=== PATIENT | female | born 1950 | race Caucasian/White ===

== ENCOUNTER 2019-06-25 08:16 | Outpatient (CLI) | payer MEDICARE, MEDICAID, SELFPAY ==
--- NOTE | ~2019-06-25 | DEXA_ITS ---
Bone Density Report Name: Yee Purdy Age: 69 Sex: Female Ethnicity: White Date of : 1950 Indication: postmenopausal; height loss; Referring Provider: GHAZAL MCCORD Study: Bone densitometry was performed. Exam Date: June 25, 2019 Accession number: [id number] Bone Density: Region BMD T-score Z-score Classification AP Spine (L1-L4) 1.235 1.7 3.9 Normal Femoral Neck (Left) 0.764 -0.8 1.1 Normal Total Hip (Left) 1.054 0.9 2.5 Normal Total Hip Bilateral Avg 0.970 0.2 1.8 Normal Femoral Neck (Right) 0.766 -0.8 1.1 Normal Total Hip (Right) 0.884 -0.5 1.1 Normal World Health Organization criteria for BMD impression classify patients as: Normal (T-score at or above -1.0), Osteopenia (T-score between -1.0 and -2.5), or Osteoporosis (T-score at or below -2.5). 10-year Fracture Risk: FRAX not reported because: All T-scores for Spine Total, Hip Total, Femoral Neck at or above -1.0 Clinical Information Provided by Patient: Patient maximum height was 62 Menopause Age: 53 No regular weight bearing exercise Drinks caffeinated beverages Onset of menses at age 14 Number of children 0 Impression: The patient has normal bone mass. Discussion: BONE DENSITY IS ABOVE THE MINIMUM DESIRABLE LEVEL AT ALL SKELETAL SITES TESTED. This patient?s bone mineral density is above the minimum desirable level (T-score -1.0 or better) at all sites measured. The patient should follow a healthful lifestyle (good nutrition with adequate calcium and vitamin D, and appropriate weight-bearing exercise). Follow-Up: Consider repeating this study in 5 years or sooner if there is some new clinical indication. Reported by: [facility] on 06/25/2019 8:51:00 AM. Reviewed, dictated and finalized at location A.
[2019-06-25 09:43] LABS: Hemoglobin A1C 6.4 % (<5.7)
[2019-06-25 09:51] LABS: Alanine Aminotransferase 27 U/L (4-35); Albumin Level 4.2 g/dL (3.5-5.1); Alkaline Phosphatase 90 U/L (38-126); Aspartate Amino Transferase 30 U/L (14-36); Bilirubin,Total 0.4 mg/dL (0.2-1.3); Blood Urea Nitrogen 16 mg/dL (7-17); Calcium 9.2 mg/dL (8.4-10.2); Carbon Dioxide 28 mmol/L (22-30); Chloride 102 mmol/L (98-107); Cholesterol 228 mg/dL (0-200); Estimated Glomerular Filt Rate > 60; Glucose 118 mg/dL (65-105); HDL Direct 61 mg/dL; Sodium 139 mmol/L (137-145); Triglycerides 135 mg/dL (<150)
[2019-06-25 10:02] LABS: LDL Cholesterol Direct 143 mg/dL
[2019-06-25 10:19] LABS: Vitamin D 25 Hydroxy 16.2 ng/mL
== END 2019-06-25 08:17 | disposition home or self-care (01) ==
PROVIDERS: PCP Emergency Medicine; Visit Provider Emergency Medicine
DX: Z78.0 Asymptomatic menopausal state (principal); E78.2 Mixed hyperlipidemia; E11.9 Type 2 diabetes mellitus without complications; E55.9 Vitamin D deficiency, unspecified
CPT/HCPCS: 36415; 77080; 80053; 80061; 82306; 83036

== ENCOUNTER 2020-07-19 12:55 | Outpatient (CLI) | payer MEDICARE, MEDICAID, SELFPAY ==
[2020-07-19 17:36] LABS: Hemoglobin A1C 6.5 % (<5.7)
[2020-07-19 18:21] LABS: Alanine Aminotransferase 65 U/L (4-35); Albumin Level 4.1 g/dL (3.5-5.1); Alkaline Phosphatase 82 U/L (38-126); Anion Gap 8 mmol/L (8-16); Aspartate Amino Transferase 60 U/L (14-36); Bilirubin,Total 0.6 mg/dL (0.2-1.3); Blood Urea Nitrogen 13 mg/dL (7-17); Calcium 9.5 mg/dL (8.4-10.2); Carbon Dioxide 26 mmol/L (22-30); Chloride 106 mmol/L (98-107); Cholesterol 228 mg/dL (0-200); Estimated Glomerular Filt Rate > 60; Glucose 138 mg/dL (65-105); HDL Direct 65 mg/dL; Potassium 4.4 mmol/L (3.4-5.0); Sodium 140 mmol/L (137-145); Triglycerides 98 mg/dL (<150)
[2020-07-19 18:32] LABS: LDL Cholesterol Direct 161 mg/dL
== END 2020-07-19 12:56 | disposition home or self-care (01) ==
LOC: ANHLAB 12:57
PROVIDERS: PCP Emergency Medicine; Visit Provider Emergency Medicine
DX: E78.2 Mixed hyperlipidemia (principal); E11.9 Type 2 diabetes mellitus without complications
CPT/HCPCS: 36415; 80053; 80061; 83036; 84443

== ENCOUNTER 2021-04-12 13:24 | Outpatient (CLI) | payer MEDICARE, SELFPAY ==
[2021-04-12 14:19] LABS: Alanine Aminotransferase 31 U/L (4-35); Albumin Level 4.4 g/dL (3.5-5.1); Alkaline Phosphatase 103 U/L (38-126); Anion Gap 4 mmol/L (8-16); Aspartate Amino Transferase 32 U/L (14-36); Bilirubin,Total 0.7 mg/dL (0.2-1.3); Blood Urea Nitrogen 19 mg/dL (7-17); Calcium 9.5 mg/dL (8.4-10.2); Carbon Dioxide 33 mmol/L (22-30); Chloride 101 mmol/L (98-107); Cholesterol 252 mg/dL (0-200); Estimated Glomerular Filt Rate > 60; Glucose 144 mg/dL (65-110); HDL Direct 69 mg/dL; Potassium 4.3 mmol/L (3.4-5.0); Sodium 138 mmol/L (137-145); Triglycerides 141 mg/dL (<150)
[2021-04-12 14:20] LABS: Hemoglobin A1C 6.8 % (<5.7)
[2021-04-12 14:29] LABS: LDL Cholesterol Direct 134 mg/dL
[2021-04-12 16:49] LABS: Microalbumin Urine Random < 6.0 mg/L (0-16.7)
== END 2021-04-12 13:25 | disposition home or self-care (01) ==
LOC: ANHLAB 13:29
PROVIDERS: PCP Emergency Medicine; Visit Provider Emergency Medicine
DX: E11.9 Type 2 diabetes mellitus without complications (principal); I10 Essential (primary) hypertension
CPT/HCPCS: 36415; 80053; 80061; 82043; 83036

== ENCOUNTER 2021-04-12 14:30 | Outpatient (CLI) | payer MEDICARE, SELFPAY ==
--- NOTE | ~2021-04-12 | MM_ITS ---
EXAMINATION: MM screening [facility] BI w nicole HISTORY: Screening mammogram TECHNIQUE: Craniocaudal and mediolateral oblique 3-D tomosynthesis images were obtained and synthetic 2-D images were generated. CAD analysis was submitted and interpreted. COMPARISON: bilateral screening mammogram BREAST PARENCHYMAL COMPOSITION: The breasts are almost entirely fatty. FINDINGS: There is no evidence of suspicious mass, calcification, or architectural distortion to sugg est malignancy in either breast. There has been no suspicious interval change. IMPRESSION: 1. No mammographic evidence of malignancy. 2. Recommend routine screening mammography in one year. BI-RADS Category 1: Negative Reviewed, dictated and finalized at location A. AULIC PLUMBER HELPER
== END 2021-04-12 14:31 | disposition home or self-care (01) ==
LOC: ANHIMG 14:32
PROVIDERS: PCP Emergency Medicine; Visit Provider Emergency Medicine
DX: Z12.31 Encounter for screening mammogram for malignant neoplasm of breast (principal)
CPT/HCPCS: 77063; 77067

== ENCOUNTER 2022-10-17 14:43 | Outpatient (CLI) | payer MEDICARE, MEDICAID, SELFPAY ==
--- NOTE | ~2022-10-17 | MM_ITS ---
EXAMINATION: MM screening [facility] BI w nicole HISTORY: Screening mammogram TECHNIQUE: Craniocaudal and mediolateral oblique 3-D tomosynthesis images were obtained and synthetic 2-D images were generated. CAD analysis was submitted and interpreted. COMPARISON: 04/12/2021, 08/29/2016 BREAST PARENCHYMAL COMPOSITION: There are scattered areas of fibroglandular density. FINDINGS: No suspicious mass, calcification, or architectural distortion are identified in either tim ast to suggest malignancy. There has been no suspicious interval change. IMPRESSION: 1. No mammographic evidence of malignancy. 2. Recommend routine screening mammography in one year. BI-RADS Category 1: Negative Reviewed, dictated and finalized at location A.
== END 2022-10-17 14:44 | disposition home or self-care (01) ==
PROVIDERS: PCP Emergency Medicine; Visit Provider Emergency Medicine
DX: Z12.31 Encounter for screening mammogram for malignant neoplasm of breast (principal)
CPT/HCPCS: 77063; 77067

== ENCOUNTER 2022-10-17 15:12 | Outpatient (CLI) | payer MEDICARE, MEDICAID, SELFPAY ==
[2022-10-17 16:20] LABS: Cholesterol 234 mg/dL (0-200); HDL Direct 61 mg/dL; Triglycerides 146 mg/dL (<150)
[2022-10-17 16:31] LABS: LDL Cholesterol Direct 130 mg/dL
[2022-10-17 18:55] LABS: Hemoglobin A1C 6.6 % (<5.7)
[2022-10-23 15:47] LABS: Vitamin D 1,25 (OH)2 Total 33 pg/mL (18-72); Vitamin D2 1,25 (OH)2 <8 pg/mL; Vitamin D3 1,25 (OH)2 33 pg/mL
== END 2022-10-17 15:13 | disposition home or self-care (01) ==
LOC: ANHLAB 15:14
PROVIDERS: PCP Emergency Medicine; Visit Provider Internal Medicine Hematology & Oncology
DX: E55.9 Vitamin D deficiency, unspecified (principal); I10 Essential (primary) hypertension; E11.9 Type 2 diabetes mellitus without complications
CPT/HCPCS: 36415; 80061; 82652; 83036

== ENCOUNTER 2023-05-08 14:03 | Outpatient (CLI) | payer MEDICARE, MEDICAID, SELFPAY ==
--- NOTE | ~2023-05-08 | US_ITS ---
EXAMINATION: US venous doppler LE RT DATE: 05/08/2023 15:16 INDICATION: Right lower limb pain. TECHNIQUE: Grayscale ultrasound images without and with compression and Doppler ultrasound images of the right lower extremity veins were obtained. COMPARISON: None. FINDINGS: The visualized portions of right common femoral vein, profunda (deep) femoral vein, femoral vein, pop liteal vein, peroneal veins, posterior tibial veins, and greater saphenous vein outflow are patent. IMPRESSION: 1. No deep venous thrombosis. Reviewed, dictated and finalized at location A. ER PRODUCTION LINE ARC
--- NOTE | ~2023-05-08 | XR_ITS ---
EXAMINATION: XR tibia fibula RT 2V DATE: 05/08/2023 14:25 INDICATION: Right lower leg pain. TECHNIQUE: 2 views of right tibia and fibula were obtained. COMPARISON: None. FINDINGS: Bone alignment is normal. No fracture. There is severe right knee osteoarthritis. There are enthesophytes at the posterior and plantar aspects of calcaneal tuberosity. IMPRESSION: 1. Severe right knee osteoarthritis. Reviewed, dictated and finalized at location A. ZER ASSISTANT
== END 2023-05-08 14:04 | disposition home or self-care (01) ==
PROVIDERS: PCP Emergency Medicine; Visit Provider Emergency Medicine
DX: M17.11 Unilateral primary osteoarthritis, right knee (principal)
CPT/HCPCS: 73590; 93971

== ENCOUNTER 2023-05-15 13:36 | Outpatient (CLI) | payer MEDICARE, MEDICAID, SELFPAY ==
[2023-05-15 15:55] LABS: Vitamin D 25 Hydroxy 23.7 ng/mL
[2023-05-15 16:08] LABS: Alanine Aminotransferase 21 U/L (6-35); Albumin Level 4.3 g/dL (3.5-5.1); Alkaline Phosphatase 98 U/L (38-126); Anion Gap 8 mmol/L (8-16); Aspartate Amino Transferase 27 U/L (14-36); Bilirubin,Total 0.7 mg/dL (0.2-1.3); Blood Urea Nitrogen 19 mg/dL (7-17); Calcium 9.4 mg/dL (8.4-10.2); Carbon Dioxide 27 mmol/L (22-30); Chloride 106 mmol/L (98-107); Cholesterol 174 mg/dL (0-200); Estimated Glomerular Filt Rate > 60; Glucose 131 mg/dL (65-110); HDL Direct 65 mg/dL; Potassium 3.6 mmol/L (3.4-5.0); Sodium 141 mmol/L (137-145); Triglycerides 101 mg/dL (<150)
[2023-05-15 16:19] LABS: LDL Cholesterol Direct 74 mg/dL
[2023-05-15 21:01] LABS: Hemoglobin A1C 7.4 % (<5.7)
== END 2023-05-15 13:37 | disposition home or self-care (01) ==
LOC: ANHLAB 13:38
PROVIDERS: PCP Emergency Medicine; Visit Provider Internal Medicine Hematology & Oncology
DX: E78.5 Hyperlipidemia, unspecified (principal); E11.9 Type 2 diabetes mellitus without complications; E55.9 Vitamin D deficiency, unspecified; E03.9 Hypothyroidism, unspecified
CPT/HCPCS: 36415; 80053; 80061; 82306; 83036; 84443

== ENCOUNTER 2024-05-12 16:13 | Outpatient (CLI) | payer MEDICARE, MEDICAID, SELFPAY ==
[2024-05-12 17:32] LABS: Cholesterol 199 mg/dL (0-200); Estimated Glomerular Filt Rate > 60; HDL Direct 68 mg/dL; Triglycerides 150 mg/dL (<150)
[2024-05-12 17:42] LABS: LDL Cholesterol Direct 92 mg/dL
== END 2024-05-12 16:14 | disposition home or self-care (01) ==
PROVIDERS: PCP Emergency Medicine; Visit Provider Emergency Medicine
DX: E11.9 Type 2 diabetes mellitus without complications (principal); E78.5 Hyperlipidemia, unspecified
CPT/HCPCS: 36415; 80061; 82565

== ENCOUNTER 2024-08-13 13:49 | Outpatient (CLI) | payer MEDICARE, MEDICAID, SELFPAY ==
--- NOTE | ~2024-08-13 | DEXA_ITS ---
Bone Density Report Name: ROSALIE ALMONTE Age: 74 Sex: Female Ethnicity: White Date of : 1950 Indication: postmenopausal; screening for osteoporosis; height loss; Referring Provider: GHAZAL MCCORD Study: Bone densitometry was performed. Exam Date: August 13, 2024 Accession number: [id number] Bone Density: Region BMD T-score Z-score Classification AP Spine(L1-L4) 1.339 2.7 5.1 Normal Femoral Neck (Left) 0.815 -0.3 1.8 Normal Total Hip (Left) 1.009 0.5 2.4 Normal Femoral Neck (Right) 0.717 -1.2 0.9 Osteopenia Total Hip (Right) 0.889 -0.4 1.4 Normal Total Hip Mean 0.949 0.1 1.9 Normal World Health Organization criteria for BMD impression classify patients as: Normal (T-score at or above -1.0), Osteopenia (T-score between -1.0 and -2.5), or Osteoporosis (T-score at or below -2.5). 10-year Fracture Risk(1): Major Osteoporotic Fracture 9.2% Hip Fracture 1.5% Reported Risk Factors: [place] (), Neck BMD=0.717, BMI=44.4 (1) FRAX(R) Version 3.08. Fracture probability calculated for an untreated patient. Fracture probability may be lower if the patient has received treatment. Clinical Information Provided by Patient: Has used the following medications: Vitamin D Patient maximum height was 61 Menopause Age: 43 No regular weight bearing exercise Drinks caffeinated beverages Onset of menses at age 13 Number of children 0 Impression: The patient has low bone mass, based on the Right Femoral Neck T-score. The patient has an estimated ten-year risk of hip fracture of 1.5% and an estimated ten-year risk of major fracture of 9.2%, based on the WHO FRAX algorithm. Discussion: BONE DENSITY IS LOW AT ONE OR MORE SKELETAL SITES. This patient's lowest T-score is low at one or more skeletal sites. It meets the World Health Organization's (WHO) criteria for ?low bone mass? (T-score between -1.0 and -2.5). The patient's 10-year risk of fracture as calculated by FRAX is less than the threshold where pharmacological therapy is recommended by the National Osteoporosis Foundation (NOF). However, all treatment decisions require clinical judgment and consideration of individual patient factors, including patient preferences, comorbidities, previous drug use, risk factors not captured in the FRAX model (e.g., frailty, falls, vitamin D deficiency, increased bone turnover, interval significant decline in bone density) and possible under or overestimation of fracture risk by FRAX. The patient should follow a healthful lifestyle (good nutrition with adequate calcium and vitamin D, and appropriate weight-bearing exercise). Follow-Up: Consider repeating this study in 2 to 3 years to reassess this patient's status, or sooner if there is some new clinical indication. Reported by: HARMONY on 08/13/2024 2:27:00 PM. Reviewed, dictated and finalized at location AKartik CERDA
--- OUTSIDE RECORDS SUMMARY | 2024-08-13 14:08 | XMS_ITS | Clinical Summary ---
Author Organization 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 Gender Identity Not on file Sexual Orientation Not on file Plan of Treatment Health Maintenance Due Date Last Done Comments DEXA Bone Density 1950 Hepatitis C Virus (HCV) Screening 1950 TdaP Immunization 1950 Colonoscopy 1993 Colorectal Cancer Screening 1993 Cologuard 1998 Immunochemical Fecal Occult Blood 1998 Pneumococcal Immunization (5 0+ years) (1 of 1 - PCV) 1998 Zoster Immunization (1 of 2) 1998 Respiratory Syncytial Virus (RSV) Immunization (Adult) (1 - 1-dose 75+ series) 2023 Influenza Immunization (#1) 2024 SARS-COV-2 Immunization ( season) 2024 Hepatitis B Immunization Aged Out No longer eligible based on patient's age to complete this topic Meningococcal Immunization (ACWY) Aged Out No longer eligible based on patient's age to complete this topic Rotavirus Immunization Aged Out No lo nger eligible based on patient's age to complete this topic
--- OUTSIDE RECORDS SUMMARY | 2024-08-13 14:08 | XMS_ITS | Patient Health Record ---
Author Organization [facility] Address [address] [place], [place] [id number] Care Team Providers Care Surfacing Machine Operator Name Role Phone FELIZ JOSÉ Unavailable [phone] Arash Ruiz Unavailable Unavailable Allergies No Known Allergies Reason For Referral No Information Social History Tobacco Use: Social History Observation Description Date Details (start date - stop date) Never Smoker NA - NA Tobacco Use/Smoking Question Answer Notes Tobacco use: nonsmoker Plan Of Treatment No Information Insurance Providers Payer Name Payer Address Payer Phone Subscriber Number Group Number Insured Name Patient Relationship to Insured Coverage Start Date Coverage End Date [facility] [address] [address] [place] [address] [id number] Yee Purdy Self - patient is the insured Medical (General) History Medical History History ICD Code acid reflux stroke Diabetic
--- OUTSIDE RECORDS SUMMARY | 2024-08-13 14:08 | XMS_ITS ---
Author Organization [facility] Address [address] [place], [place] [id number] Care Team Providers Care Launchman Name Role Phone ESTEFANÍA FELIZ Unavailable [phone] Arash uRiz Unavailable Unavailable Allergies No Known Allergies REASON FOR VISIT DIABETIC FOOT CARE / GENERAL CARE / POSSIBLE RX REQUEST FOR BRACE Social History Tobacco Use: Social History Observation Description Date Details (start date - stop date) Never Smoker NA - NA Tobacco Use/Smoking Question Answer Notes Tobacco use: nonsmoker Encounters Encounter Location Date Provider Diagnosis [facility] [place] [address] [place], [place] [id number] 03/21/2023 FELIZ ROBISON Fungal infection of nail B35.1 ; Pain in right foot M79.671 ; Left foot pain M79.672 ; Foot drop, right foot M21.371 and 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, bilateral legs I70.203 Assessments Encounter Date Diagnosis (ICD Code) Assessment Notes Treatment Notes Treatment Clinical Notes Section Notes 03/21/2023 Fungal infection of nail (ICD-10 - B35.1) Nails 1-5 Bilateral were debrided extensively with nail nippers and emery board, reducing length and girth to pink healthy tissue with any subungual debris and necrotic tissue removed 03/21/2023 Pain in right foot (ICD-10 - M79.671) 03/21/2023 Left foot pain (ICD-10 - M79.672) 03/21/2023 Foot drop, right foot (ICD-10 - M21.371) 03/21/2023 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, bilateral legs (ICD-10 - I70.203) 03/21/2023 Other Rx for AFO right Plan Of Treatment Treatment Notes Assessment Notes Fungal infection of nail Nails 1-5 Bilat eral were debrided extensively with nail nippers and emery board, reducing length and girth to pink healthy tissue with any subungual debris and necrotic tissue removed Other Rx for AFO right Next Appt Details Follow Up: 9 weeks, Reason: Progress Notes * Yee ALMONTEDOB: [birth year] (73 yo F)Acc No.[id number]:03/21/2023 Progress Notes Patient: Yee DORSEY Provider: Jose Martin Robison DPM :1950 A ge:72 Y S ex:Female Date:03/21/2023 Address:[address] [place] [address] Subjective: * Chief Complaints: * D IABETIC FOOT CARE / GENERAL CARE / POSSIBLE RX REQUEST FOR BRACE * HPI: H PI: New Complaint P atient presents for a new patient consultation. Patient complains of an issue to bilateral feet/nails. Patient is diabetic, needing anual foot exam and nail care. Patient has drop foot and while walking in the brace, is dragging the toe of the foot along the ground. Not sure if needing new brace for leg/ankle. Patient reports pain along the ankle D uration of problem is many years Patient denies any injury. MA: PAUL. * ROS: G eneral / Constitutional: Patient denies c hange in appetite, fatigue, chills, fever.? C ardiovascular: Chest pain d enies. N eurologic: Loss of use of extremity d enies. * Medical History: * Surgical History: * Hospitalization/Major Diagno stic Procedure: * Family History: M other: unknown, Diabetic. B rother: unknown, Diabetic. S ister: unknown, Diabetic.? * Social History: T obacco Use: T obacco Use/Smoking T obacco use: n onsmoker D rugs/Alcohol: D o you drink alcohol?: No. * Medications: * Allergies: N .K.D.A.no[Allergies Verified] Objective: * Vitals: no vitals entered on CHORAL DIRECTOR paperwork. * Examination: P hysical Examination: Gen: T he patient is awake, alert, well developed, well groomed and well nourished. They are in no apparent distress. . Musc: F oot structure is normal bilateral. Muscle strength is 0/5 to DF of left ankle joint. T here is no pain on palpation. . Derm: T here is absent hair growth on bilateral feet. There are pigmentary changes of bilateral foot. The skin color is red. The skin texture is thin and shiny. Distal cooling noted in bilateral feet. Nails are thick, discolored, and dystrophic with subungual debris. They are painful to palpation. . Neuro: G rossly intact to light touch bilateral . Vasc: P osterior tibialis pulse 0/4 bilaterally. Dorsalis pedis pulse 0/4 bilaterally. No edema noted. Capillary fill time > 3 seconds to all digits. . Assessment: * Assessment: 1. F ungal infection of nail - B35.1 (Primary) 2 . P ain in right foot - M79.671 3 . L eft foot pain - M79.672 4 . F oot drop, right foot - M21.371 5 . U nspecified atherosclerosis of campo arteries of extremities, bilateral legs - I70.203 Plan: * Treatment: 2. O thers Notes: Rx for AFO right * Procedure Codes: 1 1721 DEBRIDE NAIL, 6 OR MORE, Modifiers: Q8 * Follow Up: 9 weeks * Billing Information: * Visit Code: 23743 Office Visit, New Pt., Level 3. Modifiers: 25 * Procedure Codes: 92594 DEBRIDE NAIL, 6 OR MORE. Modifiers: Q8 * ONAL INJURY LITIGATION PARALEGAL Sign off status: Completed true * Provider: Jose Martin Robison DPM Date: Generated for Elida patterson/Ivelisse/Yuridiaitting on: 0 08/13/2024 02:08 PM CDT History and Physical Notes * HPI (History of Present Illness) Category Sub-Category Detail Notes Category Not es HPI New Complaint Patient presents for a new patient consultation. Patient complains of an issue to bilateral feet/nails. Patient is diabetic, needing anual foot exam and nail care. Patient has drop foot and while walking in the brace, is dragging the toe of the foot along the ground. Not sure if needing new brace for leg/ankle. Patient reports pain along the ankle Duration of problem is many years Patient denies any injury. MA: SH Examination Category Sub-Category Detail Notes Category Not es Physical Examination Gen: The patient is awake, alert, well developed, well groomed and well nourished. They are in no apparent distress. Vasc: Posterior tibialis p ulse 0/4 bilaterally. Dorsalis pedis pulse 0/4 bilaterally. No edema noted. Capillary fill time > 3 seconds to all digits. Neuro: Grossly intact to li ght touch bilateral Musc: Foot structure is no rmal bilateral. Muscle strength is 0/5 to DF of left ankle joint. There is no pain on palpation. Derm: There is absent hair growth on bilateral feet. There are pigmentary changes of bilateral foot. The skin color is red. The skin texture is thin and shiny. Distal cooling noted in bilateral feet. Nails are thick, discolored, and dystrophic with subungual debris. They are painful to palpation.
--- OUTSIDE RECORDS SUMMARY | 2024-08-13 14:08 | XMS_ITS ---
Author Organization [facility] Address [address] [place], [place] [id number] Care Team Providers Care Java Portal Developer Name Role Phone FELIZ ROBISON Unavailable [phone] Arash Ruiz Unavailable Unavailable REASON FOR VISIT No reason given Encounters Encounter Location Date Provider Diagnosis [facility] [place] [address] [place], [place] [id number] 06/20/2023 FELIZ ROBISON Plan Of Treatment No Information Progress Notes * Yee ALMONTEDOB: [birth year] (74 yo F)Acc No.[id number]:06/20/2023 Patient: Yee DORSEY Provider: Jose Martin Robison DPM :1950 A ge:73 Y S ex:Female Date:06/20/2023 Address:[address] [place], [place] [phone] Subjective: * Chief Complaints: * 1 . No reason given. * Medical History: Objective: * Vitals: Assessment: Plan: * Treatment: * Billing Information: * Visit Code: * Procedure Codes: * Electronic signature of FELIZ ROBISON DPM on 08/13/2024 at 02:07 PM CDT Sign off status: Pending * Provider: Jose Martin Robison DPM Date: 0 06/20/2023 Generated for Thiagoi yesenia/Ivelisse/eTransmitting on: 0 08/13/2024 02:07 PM CDT
== END 2024-08-13 13:50 | disposition home or self-care (01) ==
LOC: ANHIMG 13:49
PROVIDERS: PCP Emergency Medicine; Visit Provider Emergency Medicine
DX: Z78.0 Asymptomatic menopausal state (principal); M85.851 Other specified disorders of bone density and structure, right thigh
CPT/HCPCS: 77080

== ENCOUNTER 2025-05-02 15:17 | Outpatient (CLI) | payer MEDICARE, MEDICAID, SELFPAY ==
--- NOTE | ~2025-05-02 | XR_ITS ---
EXAMINATION:Right knee 3 views DATE: 05/02/2025 INDICATION: Pain, right knee TECHNIQUE: 3 views of right knee COMPARISON: None. FINDINGS: Advanced, grade 4 degenerative changes of medial compartment with complete loss of joint space. Severe grade 3 to grade 4 degenerative changes of patellofemoral joint and lateral compartment. Osteopenic bones. IMPRESSION: 1. No acute bony lesions. Osteopenic bones. 2. Advanced grade 4 degenerative changes of the medial compartment. Thickening grade 3 and grade 4 degenerative changes of patellofemoral joint and lateral compartment. Reviewed, dictated and finalized at location T. CE ADMINISTRATOR IMPRESSION: 1. No acute bony lesions. Osteopenic bones. 2. Advanced grade 4 degenerative changes of the medial compartment. Thickening grade 3 and grade 4 degenerative changes of patellofemoral joint and lateral co mpartment.
[2025-05-02 16:32] LABS: Hemoglobin A1C 7.4 % (<5.7)
[2025-05-02 16:40] LABS: Alanine Aminotransferase 22 U/L (6-35); Albumin Level 4.4 g/dL (3.5-5.1); Alkaline Phosphatase 95 U/L (38-126); Anion Gap 7 mmol/L (4-12); Aspartate Amino Transferase 35 U/L (14-36); Bilirubin,Total 0.5 mg/dL (0.2-1.3); Blood Urea Nitrogen 19 mg/dL (7-17); Calcium 9.5 mg/dL (8.4-10.2); Carbon Dioxide 30 mmol/L (22-30); Chloride 100 mmol/L (98-107); Cholesterol 206 mg/dL (0-200); Estimated Glomerular Filt Rate > 60; Glucose 129 mg/dL (65-110); HDL Direct 88 mg/dL; Potassium 3.4 mmol/L (3.4-5.0); Sodium 137 mmol/L (137-145); Total Protein 8.3 g/dL (6.3-8.2); Triglycerides 159 mg/dL (<150)
[2025-05-02 16:45] LABS: MALB Creatinine Ratio 10.6 mg/g (0-30)
--- OUTSIDE RECORDS SUMMARY | 2025-05-02 18:48 | XMS_ITS | Clinical Summary ---
Author Organization [facility] Address [address] [place] [address] Care Team Providers Care Glass Cutter Hand Name Role Phone Unavailable Primary Care Provider Unavailabl e Social History Tobacco Use Types Packs/Day Years Used Date Smoking Tobacco: Never Assessed Comments Unknown Sex and Gender Information Value Date Recorded Sex Assigned at Not on file Legal Sex Female 8:48 AM STRATEGY INTERN Gender Identity Not on file Sexual Orientation Not on file Plan of Treatment Health Maintenance Due Date Last Done Comments Hepatitis C Virus (HCV) Screening 1950 TdaP Immunization 1950 Pneumococcal Immunization (5 0+ years) (1 of 1 - PCV) 1998 Zoster Immunization (1 of 2) 1998 Respiratory Syncytial Virus (RSV) Immunization (Adult) (1 - 1-dose 75+ series) 2023 Influenza Immunization (#1) 2025 SARS-COV-2 Immunization ( season) 2025 Hepatitis B Immunization Aged Out No longer eligible based on patient's age to complete this topic Human Papillomavirus (HPV) Immunization Aged Out No longer eligible b ased on patient's age to complete this topic Meningococcal Immunization (ACWY) Aged Out No longer eligible based on patient's age to complete this topic Rotavirus Immunization Aged Out No lo nger eligible based on patient's age to complete this topic
== END 2025-05-02 15:18 | disposition home or self-care (01) ==
LOC: ANHIMG 15:21
PROVIDERS: PCP Emergency Medicine; Visit Provider Emergency Medicine
DX: M17.11 Unilateral primary osteoarthritis, right knee (principal); E78.5 Hyperlipidemia, unspecified; I10 Essential (primary) hypertension; E11.9 Type 2 diabetes mellitus without complications; E55.9 Vitamin D deficiency, unspecified
CPT/HCPCS: 36415; 73560; 80053; 80061; 82043; 82306; 83036